=== PATIENT | female | born 2000 | race Caucasian/White ===

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

== ENCOUNTER → 2021-01-27 | Outpatient (CLI) | payer BC | LOC: LAB FS 14:23 | PROVIDERS: ATTEND Family Medicine | DX: R19.7 Diarrhea, unspecified (principal) ==

== ENCOUNTER → 2021-03-05 | Outpatient (CLI) | payer BC | LOC: LABNPT 14:51 | PROVIDERS: ATTEND Family Medicine | DX: R53.83 Other fatigue (principal) ==

== ENCOUNTER → 2021-05-04 | Outpatient (CLI) | payer BC | LOC: LABNPT 14:42 | PROVIDERS: ATTEND Registered Nurse Emergency | DX: R39.9 Unspecified symptoms and signs involving the genitourinary system (principal) | CPT/HCPCS: 87088 ==